=== PATIENT | female | born 1995 | race Caucasian/White ===

== ENCOUNTER 2021-12-23 00:47 | Observation (INO) | payer OTHER ==
[~2021-12-23] VITALS: Ht 152.4 cm; Wt 52.3 kg
[~2021-12-23 00:47] MED LIST: ABIL20TA5 PO; ACET1TAB55 PO; ARIP1TAB6 PO; BACL-60 PO; BENA25CA2 PO; CYMB1CAP4 PO; DIPH50CA PO; DULO1CAP5 PO; DULO1CAP6 PO; DULO30CA9 PO; FOLI1TAB11 PO; GEOD20CA14 PO; IBUP-1114 PO; MAGN400T35 PO; METH-1164 PO; MOTR200T44 PO; PROZ20CA11 PO; TIZA4CAP PO; TRAM50TA2 PO; TRAZ-252 PO; TRAZ1TAB10 PO; TYLE167L PO; TYLE325T5 PO; birth control PO
[2021-12-23 01:55] VITALS: BP 111/69
[2021-12-23] MEDS ORDERED: MAALOX 30 ML SUSP *UDC PO PRN (02:10)
[2021-12-23] MEDS ORDERED: MOM 30ML SUSPENSION UDC PO PRN (02:10)
[2021-12-23] MEDS ORDERED: ACETAMINOPHEN TAB 650MG DOSE (2X325MG) PO PRN (02:10)
[2021-12-23] MEDS ORDERED: SYNT125T PO (03:57)
[2021-12-23] MEDS ORDERED: IBUP1TAB7 PO (03:57)
[2021-12-23] MEDS ORDERED: CLIN150C17 PO (03:57)
[2021-12-23] MEDS ORDERED: ZOLO100T PO (03:58)
[2021-12-23] MEDS ORDERED: HYDR-4571 PO (03:58)
[2021-12-23] MEDS ORDERED: PERI12LIQ SSP (03:58)
[2021-12-23] MEDS ORDERED: ISIB1TAB PO (03:58)
[2021-12-23] MEDS ORDERED: HOME MED LIST COMPLETE! XX SCH (04:00)
[2021-12-23] MEDS: NS 1,000 ML IV SCH ×3 (04:08→20:48)
[2021-12-23] MEDS: CLINDAMYCIN 600 MG in IV 1 EA IV SCH ×3 (05:26→21:05)
[2021-12-23 06:00] VITALS: BP 108/69
[2021-12-23] MEDS: MORPHINE 4 MG/ML 1ML VIAL/SYRINGE (J2270) IV PRN ×5 (06:16→23:22)
[2021-12-23] MEDS: ONDANSETRON 4MG/2ML VIAL IV PRN ×2 (06:21→23:21)
[2021-12-23 06:42] LABS: BASO # 0.1 10^3/uL (0.0-0.2); BASO % 0.5 % (0.0-1.0); EOS # 0.1 10^3/uL (0.0-0.5); EOS % 1.1 % (0.0-3.0); HEMATOCRIT 33.8 % (36.0-47.0); LYMPH # 2.5 10^3/uL (1.5-5.0); LYMPH % 24.7 % (24.0-44.0); MEAN CORPUSCULAR HEMOGLOBIN 28.2 pg (27.0-33.0); MEAN CORPUSCULAR HGB CONC 32.5 g/dl (32.0-36.5); MEAN CORPUSCULAR VOLUME 86.7 fl (80.0-96.0); MONO # 0.4 10^3/uL (0.0-0.8); MONO % 4.3 % (2.0-8.0); NEUTROPHILS # 6.8 10^3/uL (1.5-8.5); NEUTROPHILS % 69.1 % (36.0-66.0); PLATELET COUNT, AUTOMATED 189 10^3/uL (150-450); WHITE BLOOD COUNT 9.9 10^3/uL (4.0-10.0)
[2021-12-23 06:54] LABS: ALBUMIN 2.9 GM/DL (3.2-5.2); ALT/SGPT 31 U/L (12-78); BILIRUBIN,TOTAL 0.2 MG/DL (0.2-1.0); BLOOD UREA NITROGEN 7 MG/DL (7-18); CALCIUM LEVEL 7.7 MG/DL (8.5-10.1); CARBON DIOXIDE LEVEL 20 MEQ/L (21-32); CHLORIDE LEVEL 115 MEQ/L (98-107); CREATININE FOR GFR 0.53 MG/DL (0.55-1.30); GLOMERULAR FILTRATION RATE > 60.0 (>60); GLUCOSE, FASTING 83 MG/DL (70-100); SODIUM LEVEL 140 MEQ/L (136-145); TOTAL PROTEIN 6.7 GM/DL (6.4-8.2)
[2021-12-23] MEDS: SUCRALFATE SUSP 1GM/10ML UD PO SCH ×5 (07:30→20:46)
[2021-12-23] MEDS: PANTOPRAZOLE 40MG VIAL (C9113 PER 1) IV SCH (07:44)
[2021-12-23] MEDS: SERTRALINE 100 MG TAB PO SCH (15:16)
[2021-12-23] MEDS: LEVOTHYROXINE 125MCG TABLET (0.125MG) PO SCH (15:18)
[2021-12-23 22:00] VITALS: BP 115/74
[2021-12-24] MEDS: MORPHINE 4 MG/ML 1ML VIAL/SYRINGE (J2270) IV PRN ×3 (03:21→11:46)
[2021-12-24] MEDS: ONDANSETRON 4MG/2ML VIAL IV PRN (05:22)
[2021-12-24] MEDS: NS 1,000 ML IV SCH (05:22)
[2021-12-24] MEDS: LEVOTHYROXINE 125MCG TABLET (0.125MG) PO SCH (05:28)
[2021-12-24] MEDS: CLINDAMYCIN 600 MG in IV 1 EA IV SCH (05:28)
[2021-12-24 05:30] VITALS: BP 115/65
[2021-12-24 06:40] LABS: HEMATOCRIT 34.2 % (36.0-47.0); HEMOGLOBIN 11.2 g/dl (12.0-15.5); MEAN CORPUSCULAR HEMOGLOBIN 28.8 pg (27.0-33.0); MEAN CORPUSCULAR HGB CONC 32.7 g/dl (32.0-36.5); MEAN CORPUSCULAR VOLUME 87.9 fl (80.0-96.0); PLATELET COUNT, AUTOMATED 177 10^3/uL (150-450); RED BLOOD COUNT 3.89 10^6/uL (4.00-5.40); WHITE BLOOD COUNT 7.8 10^3/uL (4.0-10.0)
[2021-12-24 06:57] LABS: BLOOD UREA NITROGEN 4 MG/DL (7-18); CALCIUM LEVEL 7.7 MG/DL (8.5-10.1); CARBON DIOXIDE LEVEL 21 MEQ/L (21-32); CHLORIDE LEVEL 111 MEQ/L (98-107); CREATININE FOR GFR 0.55 MG/DL (0.55-1.30); GLOMERULAR FILTRATION RATE > 60.0 (>60); GLUCOSE, FASTING 73 MG/DL (70-100); POTASSIUM SERUM 3.5 MEQ/L (3.5-5.1); SODIUM LEVEL 140 MEQ/L (136-145)
[2021-12-24] MEDS ORDERED: ISOVUE-370 76% 100ML VIAL As Ordered ONE (08:18)
[2021-12-24] MEDS: SUCRALFATE SUSP 1GM/10ML UD PO SCH (08:56)
[2021-12-24] MEDS: SERTRALINE 100 MG TAB PO SCH (08:56)
[2021-12-24] MEDS: PANTOPRAZOLE 40MG VIAL (C9113 PER 1) IV SCH (08:56)
== END 2021-12-24 12:13 | disposition home or self-care (01) ==
LOC: INTOOBSV 00:47 → M MSPAV 00:47
PROVIDERS: ADMIT Family Medicine; ATTEND Family Medicine
DX: K12.2 Cellulitis and abscess of mouth (principal); R25.2 Cramp and spasm; R68.84 Jaw pain; R22.0 Localized swelling, mass and lump, head; R22.1 Localized swelling, mass and lump, neck; K08.409 Partial loss of teeth, unspecified cause, unspecified class; Z98.818 Other dental procedure status; R13.10 Dysphagia, unspecified; R11.2 Nausea with vomiting, unspecified; R10.13 Epigastric pain; E03.9 Hypothyroidism, unspecified; G93.5 Compression of brain; G43.909 Migraine, unspecified, not intractable, without status migrainosus; Z79.899 Other long term (current) drug therapy; Z79.2 Long term (current) use of antibiotics; Z79.3 Long term (current) use of hormonal contraceptives; Z88.0 Allergy status to penicillin; Z88.8 Allergy status to other drugs, medicaments and biological substances
CPT/HCPCS: 36415; 70487; 80048; 80053; 83735; 85025; 85027; 87040; 96365; 96375; 96376; C9113; J2270; J2405; Q9967